=== PATIENT | male | born 1955 | race Caucasian/White ===

== ENCOUNTER → 2016-10-11 | Outpatient (CLI) | payer MEDICARE, OTHER ==
[~2016-10-11] MED LIST: ALBUTEROL17 GM INH; ANTACID650 MG PO; ASPIRIN81 M2 PO; ATARAX PO; CALCIUM ACETAT667 M2 PO; CELEBREX PO; DESYREL50 MG DOB; DESYREL50 MG PO; FENOFIBRATE160 MG PO; HYDROXYZINE HCL50 MG PO; LOPRESSOR PO; MEDROL PO; NEURONTIN100 MG PO; SODIUM BICARBO650 MG PO; TYLENOL WITH C1 EACH PO; VALACYCLOVIR1000 MG PO; ZITHROMAX PO
--- NOTE | ~2016-10-11 | MR32 ---
[facility] A Service of [facility] & [facility] RADIOLOGY TEXT RESULTS PATIENT: ÁNGEL VERMA LOCATION: [facility] : 57 UNIT #: [id number] AGE: [address]: Margaret Silva MD SEX: M ORDER DR: [id number] [facility] [address] [place], [place] [address] [id number] O MR#: [id number] Acc #: [id number] NAME: ÁNGEL VERMA. : 1955 SEX: M STUDY DATE/TIME: 10/11/2016 18:30 UNIT: [facility] ROOM: STUDY DESCRIPTION: MR Cervical Wo Contrast Attending Physician: Margaret Silva M.D. Ordering Physician: Margaret Silva M.D. Primary Care Physician: Margaret Silva M.D. MRI CENTER REPORT This report is preliminary unless electronic signature is present. EXAM MRI of the cervical spine without contrast dated 10/11/2016. COMPARISON Plain films of the cervical spine dated 10/11/2014. HISTORY Chronic neck pain, which is worse in the last 2 months. History of lifting heavy sacks at work years ago. Occasional numbness in arms. FINDINGS Multisequence, multiplanar imaging of the cervical spine was obtained without contrast. Motion artifact limits evaluation despite repeating axial T2 sequence. Disc-osteophyte complex are noted throughout the cervical spine. Vertebral body heights are relatively preserved. Cord demonstrates normal course, caliber and signal. Pre- and paravertebral soft tissues do not demonstrate any significant abnormality. C2-3: Concentric disc bulge with superimposed [id number] central moderate protrusion. Mild bilateral facet changes are noted without canal stenosis or neural foraminal narrowing. C3-4: Concentric disc bulge with superimposed left central to right subarticular moderate protrusion with borderline size to mild canal stenosis. Severe left facet hypertrophic changes seen with superior left neural foraminal narrowing and relatively patent inferior aspect. C4-5: Moderate central protrusion with borderline size to mild canal stenosis. Mild to moderate bilateral facet changes are noted without any significant neural foraminal narrowing. C5-6: Concentric disc bulge with superimposed [id number]-[id number] central STS. [facility] A Service of [facility] & [facility] RADIOLOGY TEXT RESULTS PATIENT: ÁNGEL VERMA [id number] : 57 UNIT #: [id number] AGE: [address]: Margaret Silva MD SEX: M ORDER DR: protrusion. Mild canal stenosis is seen with mild left neural foraminal narrowing and mild left facet hypertrophic change. C6-7: Disc-osteophyte complex with bilateral uncinate spurs and mild bilateral neural foraminal narrowing with borderline size to mild canal stenosis. C7-T1: Disc-osteophyte complex with right uncinate spur, moderate to severe right neural foraminal narrowing and mild bilateral facet changes. Borderline size to mild canal stenosis is seen. IMPRESSION 1. Degenerative changes are noted at multiple levels as described above. 2. Cord is unremarkable, after giving allowances to motion artifact. Dictated by... Joel Castro M.D. THIS IS AN ELECTRONICALLY VERIFIED REPORT Joel Castro M.D. at 10/13/2016 3:04 PM CPR/psc TD: 10/12/2016 21:45 JOB #: [id number] MRI CENTER REPORT Page 1 of 1 COPY
== END | disposition home or self-care (01) ==
LOC: CRAD 18:00
DX: M54.10 Radiculopathy, site unspecified (principal); M47.812 Spondylosis without myelopathy or radiculopathy, cervical region
CPT/HCPCS: 72141